=== PATIENT | male | born 1960 | race Two or more races ===

== ENCOUNTER 2021-05-01 05:33 | Emergency (ER) | payer MEDICAID, OTHER ==
[~2021-05-01] VITALS: Ht 177.8 cm; Wt 68.0 kg
[2021-05-01] MEDS ORDERED: RABIES VACCINE (PCEC)/PF 2.5 UNITS IM ONE (07:45)
[2021-05-01] MEDS ORDERED: SODIUM CHLORIDE 0.9% 1,000 ML IV ONE (08:00)
[2021-05-01 08:33] VITALS: BP 130/84
[2021-05-01 09:36] LABS: Basophils # (auto) 0 10 ^3/uL (0-0.2); Basophils % (auto) 0.3 % (0.0-2.0); Eosinophils # (auto) 0 10 ^3/uL (0-0.8); Eosinophils % (auto) 0.2 % (0.0-7.0); Hematocrit 34.4 % (41.0-53.0); Hemoglobin 12.1 g/dL (13.5-17.5); Lymphocytes # (auto) 0.6 10 ^3/uL (0.4-5.4); Lymphocytes % (auto) 6.7 % (10.0-50.0); Mean Corpuscular Hgb Conc. 35.3 g/dL (32.0-36.0); Mean Corpuscular Volume 90.8 fL (80.0-100.0); Monocytes # (auto) 0.5 10 ^3/uL (0-1.3); Monocytes % (auto) 6.5 % (0.0-12.0); Neutrophils # (auto) 7.1 10 ^3/uL (1.6-8.6); Neutrophils % (auto) 86.3 % (37.0-80.0); Nucleated Red Blood Cells % 0.1 %; Red Blood Cells 3.79 10^6/uL (4.5-5.90); Red Cell Distribution Width 13.1 % (11.8-14.3); White Blood Cell 8.3 10^3/uL (4.4-10.8)
[2021-05-01 09:50] LABS: Urine Bacteria NONE SEEN /hpf (None Seen); Urine Blood Negative /uL (Negative); Urine Mucus FEW (None Seen); Urine Specific Gravity 1.029 (1.001-1.035); Urine WBC <1 /hpf (0 - 3)
[2021-05-01 09:58] LABS: Anion Gap 5 (5-15); Calcium 8.3 mg/dL (8.5-10.1); Carbon Dioxide 27 mmol/L (21-32); Chloride 110 mmol/L (98-107); Potassium 3.4 mmol/L (3.5-5.1); Sodium 142 mmol/L (136-145)
[2021-05-01 10:04] LABS: Alanine Aminotransferase 26 U/L (16-61); Albumin 3.3 g/dL (3.4-5.0); Alkaline Phosphatase 33 U/L (45-117); Aspartate Aminotransferase 29 U/L (15-37); BUN/Creatinine Ratio 21.3; Bilirubin, Total 0.4 mg/dL (0.2-1.0); Blood Alcohol < 3.0 mg/dL (0-5); Blood Urea Nitrogen 17 mg/dL (7-18); GFR African American 126 mL/min; GFR Non-African American 104 mL/min; Glucose 92 mg/dL (74-106); Total Protein 6.3 g/dL (6.4-8.2)
[2021-05-01 10:07] LABS: Alcohol, Urine < 3.0 mg/dL (0-10); Amphetamine Screen, Urine NEGATIVE (NEGATIVE); Barbiturate Scree,Urine NEGATIVE (NEGATIVE); Benzodiazephine Screen, Urine NEGATIVE (NEGATIVE); Cannabinoid Screen, Urine NEGATIVE (NEGATIVE); Cocaine Screen, Urine NEGATIVE (NEGATIVE); Opiate Scree,Urine NEGATIVE (NEGATIVE); Phencyclidine Screen, Urine NEGATIVE (NEGATIVE)
[2021-05-01] MEDS ORDERED: KETOROLAC TROMETH 30 MG/ML 1ML VIAL IV ONE (10:30)
[2021-05-01] MEDS ORDERED: IBUP800T26 PO (11:24)
[2021-05-01] MEDS ORDERED: BACITRACIN TOP OINT 1 UD PKG TOP ONE (11:30)
== END 2021-05-01 12:28 | disposition home or self-care (01) ==
LOC: ER 05:33 → EDBD 05:33 → ER 12:01
DX: S00.31XA Abrasion of nose, initial encounter (principal); J32.1 Chronic frontal sinusitis; Y08.89XA Assault by other specified means, initial encounter; Y93.89 Activity, other specified; Y92.89 Other specified places as the place of occurrence of the external cause; Y99.8 Other external cause status
CPT/HCPCS: 36415; 70450; 70486; 71046; 80053; 80307; 80320; 81001; 85025; 96361; 96374; 99285; J1885; J7030; 90675